=== PATIENT | female | born 1985 | race American Indian/Alaskan Native ===

== ENCOUNTER 2018-02-01 15:58 | Emergency (ER) | payer SELFPAY ==
[2018-02-01 16:54] LABS: Basophils # (Auto) 0.1 K/mm3 (0.0-0.1); Basophils % (Auto) 1.2 % (0.0-1.8); Eosinophils # (Auto) 0.1 K/mm3 (0.0-0.4); Eosinophils % (Auto) 1.3 % (0.0-4.3); Hematocrit 34.6 % (30.3-42.9); Hemoglobin 11.8 gm/dl (10.1-14.3); Lymphocytes # (Auto) 2.7 K/mm3 (1.2-5.4); Lymphocytes % (Auto) 33.6 % (13.4-35.0); Mean Corpuscular HGB Conc 34 % (30-34); Mean Corpuscular Hemoglobin 28 pg (28-32); Mean Corpuscular Volume 82 fl (79-97); Monocytes # (Auto) 0.4 K/mm3 (0.0-0.8); Monocytes % (Auto) 4.8 % (0.0-7.3); Platelet Count 297 K/mm3 (140-440); Red Cell Distribution Width 15.9 % (13.2-15.2)
[2018-02-01 17:11] LABS: Alanine Aminotransferase 5 units/L (7-56); Albumin 4.1 g/dL (3.9-5); BUN/Creatinine Ratio 14; Blood Urea Nitrogen 11 mg/dL (7-17); Calcium 9.3 mg/dL (8.4-10.2); Hemolysis Index 8
[2018-02-01 20:57] LABS: Bacteria,Urine 4+ /HPF (Negative); Bilirubin,Urine NEG (Negative); Blood,Urine LG (Negative); Color,Urine Amber (Yellow); Mucus,Urine 3+ /HPF
[2018-02-01 20:58] LABS: RBC,Urine > 182.0 /HPF (0.0-6.0)
[2018-02-01] MEDS ORDERED: NACL 0.9% 1000 ML 1,000 ML IV ONE (21:16)
[2018-02-01] MEDS ORDERED: ZOFRAN IV ONE (21:16)
[2018-02-01] MEDS ORDERED: TORADOL IV ONE (21:16)
--- NOTE | 2018-02-01 21:47 | Emergency Department Report ---
ED Abdominal Pain HPI - General Chief Complaint: Abdominal Pain Stated Complaint: BAD STOMACH PAIN Time Seen by Provider: 02/01/18 20:35 Source: patient Mode of arrival: Ambulatory Limitations: No Limitations - History of Present Illness Initial Comments: 32-year-old -[place] female with a past medical history of diabetes that is insulin-dependent comes in complaining of upper abdominal pain 2 days. Patient admits to nausea and vomited 2 hours ago. Patient reports that the pain is constant sharp does not radiate bending makes it worse sleep and makes it better. Patient reports that she has nausea at this moment. She reports that she's had a cholecystectomy 2 years ago. Only medication she is on his Lantus 70 units daily at bedtime. Patient's currently on her menses started on 01/31/2018. Patient points to the pain as her epigastric. He shouldn't is recently moved back to this area and does not have a primary care provider. -: days(s) (2) Location: epigastric Radiation: none Migration to: no migration Severity scale (0 -10): 8 Quality: sharp Consistency: constant Improves With: rest Worsens With: movement (bending) Associated Symptoms: nausea, vomiting, dysuria. denies: diarrhea, fever, chills , constipation, hematuria - Related Data LMP Date: 01/31/18 Previous Rx's Medication Instructions Recorded Last Taken Type Nitrofurantoin Monohyd/M-Cryst 100 mg PO Q12H #20 capsule 02/02/18 Unknown Rx [Macrobid 100 mg Capsule] Allergies Allergy/AdvReac Type Severity Reaction Status Date / Time Penicillins Allergy Swelling Verified 02/01/18 16:04 tomato Allergy Swelling Verified 02/01/18 16:04 ED Review of Systems ROS: Stated complaint: BAD STOMACH PAIN Other details as noted in HPI Constitutional: denies: chills, fever Eyes: denies: eye pain, eye discharge, vision change ENT: denies: ear pain, throat pain Respiratory: denies: cough, shortness of breath, wheezing Cardiovascular: denies: chest pain, palpitations Gastrointestinal: abdominal pain, nausea, vomiting. denies: diarrhea, constipation Genitourinary: dysuria Musculoskeletal: denies: back pain, joint swelling, arthralgia Skin: denies: rash, lesions Neurological: denies: headache, weakness, paresthesias Psychiatric: denies: anxiety, depression Hematological/Lymphatic: denies: easy bleeding, easy bruising ED Past Medical Hx - Past Medical History Previous Medical History?: Yes Hx Diabetes: Yes - Surgical History Past Surgical History?: Yes Hx Cholecystectomy: Yes Additional Surgical History: - Social History Smoking Status: Never Smoker Substance Use Type: None - Medications Home Medications: Home Medications Medication Instructions Recorded Confirmed Last Taken Type Nitrofurantoin Monohyd/M-Cryst 100 mg PO Q12H #20 capsule 02/02/18 Unknown Rx [Macrobid 100 mg Capsule] ED Physical Exam - General Limitations: No Limitations General appearance: alert, in no apparent distress - Head Head exam: Present: atraumatic, normocephalic - Eye Eye exam: Present: EOMI - ENT ENT exam: Present: mucous membranes dry - Neck Neck exam: Present: normal inspection, full ROM. Absent: lymphadenopathy - Respiratory Respiratory exam: Present: normal lung sounds bilaterally. Absent: respiratory distress, wheezes - Cardiovascular Cardiovascular Exam: Present: tachycardia - GI/Abdominal GI/Abdominal exam: Present: soft, tenderness (epigastric). Absent: distended - Extremities Exam Extremities exam: Present: normal inspection, full ROM - Back Exam Back exam: Present: normal inspection - Neurological Exam Neurological exam: Present: alert, oriented X3 - Psychiatric Psychiatric exam: Present: normal affect, normal mood - Skin Skin exam: Present: warm, dry, intact, normal color. Absent: rash ED Course Vital Signs 02/01/18 02/01/18 02/01/18 16:04 22:31 23:01 Temperature 99.0 F Pulse Rate 98 H Respiratory 18 20 20 Rate Blood Pressure 127/75 O2 Sat by Pulse 99 Oximetry - Reevaluation(s) Reevaluation #1: 02/02/18 01:03 Patient reports she feels much better after having IV fluids and antinausea medicine K she and her patient reports she is ready to be discharged home. ED Medical Decision Making - Lab Data Result diagrams: 02/01/18 16:44 02/01/18 16:44 - Medical Decision Making Patient has been evaluated by this provider in fast track. IV with normal saline and Zofran 4 mg IV, Toradol 15 mg IV ordered. Labs CBC CMP urinalysis. Urinalysis appears to be positive for urinary tract infection. I added on a lipase because of epigastric pain with a history of diabetes rule out pancreatitis Patient be reevaluated after fluids and meds. Critical care attestation.: If time is entered above; I have spent that time in minutes in the direct care of this critically ill patient, excluding procedure time. ED Disposition Clinical Impression: UTI (urinary tract infection) Qualifiers: Urinary tract infection type: acute cystitis Hematuria presence: with hematuria Qualified Code(s): N30.01 - Acute cystitis with hematuria Disposition: TO HOME OR SELFCARE Is pt being admited?: No Does the pt Need Aspirin: No Condition: Stable Instructions: Abdominal Pain (ED), Urinary Tract Infection in Women (ED) Additional Instructions: Complete antibiotics as prescribed. Increase her water intake by 2 L a day. If her symptoms persist or gets worse please follow up with her primary care provider. Prescriptions: Nitrofurantoin Monohyd/M-Cryst [Macrobid 100 mg Capsule] 100 mg PO Q12H #20 capsule Referrals: PRIMARY CARE, [Primary Care Provider] - 3-5 Days Forms: Work/School Release Form(ED)
[2018-02-02 01:02] VITALS: BP 122/66
== END 2018-02-02 01:24 | disposition home or self-care (01) ==
LOC: ED 15:58
DX: N30.01 Acute cystitis with hematuria (principal); E11.9 Type 2 diabetes mellitus without complications; R11.2 Nausea with vomiting, unspecified; Z90.49 Acquired absence of other specified parts of digestive tract; Z88.0 Allergy status to penicillin; Z91.018 Allergy to other foods
CPT/HCPCS: 36415; 80053; 81001; 82962; 83690; 84703; 85025; 96361; 96374; 96375; 99283; J1885; J2405; J7030